=== PATIENT | male | born 1975 | race Caucasian/White ===

== ENCOUNTER 2020-01-01 15:47 | Emergency (ER) | payer SELFPAY ==
[~2020-01-01] VITALS: Ht 182.9 cm; Wt 91.2 kg
[2020-01-01 16:10] VITALS: BP 136/92; Ht 182.9 cm; Wt 91.2 kg
== END 2020-01-01 20:28 | disposition left against medical advice (07) ==
LOC: ED 15:47
DX: Z53.21 Procedure and treatment not carried out due to patient leaving prior to being seen by health care provider (principal)